=== PATIENT | female | born 1980 | race American Indian/Alaskan Native ===

== ENCOUNTER 2018-03-10 10:17 | Inpatient (IN) | payer MEDICAID ==
[2018-03-03 12:21] VITALS: BMI 27.8
[2018-03-10] MEDS ORDERED: Propofol 10 mg/ml Inj (20 ML) ONE (13:12)
[2018-03-10] MEDS ORDERED: ceFAZolin IV 1 gm in Dextrose 1 GM/50 ML BAG IVPB ONE (13:27)
[2018-03-10] MEDS ORDERED: Succinylcholine Chloride 20 mg/ml Syr (5 ml) IV ONE (13:39)
[2018-03-10] MEDS ORDERED: Rocuronium 10 mg/ml (5 ml) ONE (13:39)
[2018-03-10] MEDS ORDERED: Neostigmine Methylsulfate 3mg/3ml Syringe IV ONE (13:44)
[2018-03-10] MEDS ORDERED: Bupivacaine 0.25% 20 ML INJ IJ ONE (13:57)
[2018-03-10] MEDS ORDERED: Lactated Ringer's 1,000 ML IV SCH (14:30)
[2018-03-10] MEDS ORDERED: Dextrose 5%/0.45% NS 1,000 ML IV ONE (17:00)
[2018-03-10] MEDS: Dextrose 5%/0.45% NS 1,000 ML IV SCH (17:59)
[2018-03-10] MEDS ORDERED: Pneumococcal 23-Valent Vaccine IM ONE (18:14)
[2018-03-10] MEDS ORDERED: Influenza Vaccine 60 MCG/0.5 ML SYR (3 yr & up) IM ONE (18:17)
[2018-03-10] MEDS: Oxycodone/Acetaminophen 5/325 mg Tab PO PRN (18:39)
--- NOTE | 2018-03-10 23:50 | CP.PCM.CON ---
Past Patient History - Past Medical History & Family History Past Medical History?: Yes - Past Social History Smoking Status: Never Smoked - CARDIAC Hx Cardiac Disorders: No - PULMONARY Hx Respiratory Disorders: No - NEUROLOGICAL Hx Neurological Disorder: No - HEENT Hx HEENT Problems: No - RENAL Hx Chronic Kidney Disease: No - ENDOCRINE/METABOLIC Hx Endocrine Disorders: No - HEMATOLOGICAL/ONCOLOGICAL Hx Blood Disorders: No - INTEGUMENTARY Hx Dermatological Problems: No - MUSCULOSKELETAL/RHEUMATOLOGICAL Hx Musculoskeletal Disorders: No Hx Falls: No Other/Comment: HX: VENTRAL HERNIA - GASTROINTESTINAL Hx Gastrointestinal Disorders: No - GENITOURINARY/GYNECOLOGICAL Hx Genitourinary Disorders: Yes Hx Reproductive Disorders: Yes (FIBROIDS) - PSYCHIATRIC Hx Substance Use: No - SURGICAL HISTORY Hx Surgeries: Yes Hx Section: Yes Hx Hysterectomy: Yes (PARTIAL HYSTERECTOMY 08/2015) Hx Tubal Ligation: Yes Other/Comment: BREAST REDUCTION - ANESTHESIA Hx Anesthesia: Yes Hx Anesthesia Reactions: No Hx Malignant Hyperthermia: No Has any member of the family had a problem w/ anesthesia?: No Meds Allergies/Adverse Reactions: Allergies Allergy/AdvReac Type Severity Reaction Status Date / Time No Known Allergies Allergy Verified 03/03/18 12:21 - Medications Medications: Current Medications Docusate Sodium (Colace) 100 mg PO BID [facility] Last Admin: 03/10/18 18:40 Dose: 100 mg Dextrose/Sodium Chloride (Dextrose 5%/0.45% Ns 1000 Ml) 1,000 mls @ 80 mls/hr IV .[id number] [facility] Last Admin: 03/10/18 17:59 Dose: 80 mls/hr Lactated Ringer's (Lactated Ringer's) 1,000 mls @ 100 mls/hr IV .Q10H [facility] Cefazolin Sodium 1,000 mg/ (Sodium Chloride) 50 mls @ 100 mls/hr IVPB Q8H [facility]; Protocol Last Admin: 03/10/18 19:00 Dose: 100 mls/hr Ondansetron HCl (Zofran Inj) 4 mg IVP Q6 PRN PRN Reason: Nausea/Vomiting Oxycodone/Acetaminophen (Percocet 5/325 Mg Tab) 2 tab PO Q4H PRN PRN Reason: pain Stop: 03/13/18 14:10 Last Admin: 03/10/18 18:39 Dose: 2 tab Pantoprazole Sodium (Protonix Inj) 40 mg IVP DAILY [facility] Results - Vital Signs Recent Vital Signs: Last Vital Signs Temp 98 F 03/10/18 22:00 Pulse 80 03/10/18 22:00 Resp 18 03/10/18 22:00 BP 142/75 03/10/18 22:00 Pulse Ox 97 03/10/18 22:00
[2018-03-11] MEDS: Oxycodone/Acetaminophen 5/325 mg Tab PO PRN ×2 (02:29→11:18)
[2018-03-11] MEDS: Dextrose 5%/0.45% NS 1,000 ML IV SCH (03:00)
[2018-03-11 05:47] VITALS: O2SAT 97
[2018-03-11 06:38] LABS: BASO % 0.4 % (0.0-2.0); HEMOGLOBIN 12.8 g/dL (11.0-16.0); LYMPH # 1.9 K/uL (1.0-4.3); LYMPH % 18.4 % (20.0-40.0); MEAN CELL VOLUME 86.6 fL (81.0-99.0); MEAN CORPUSCULAR HEMOGLOBIN 28.6 pg (27.0-31.0); MEAN PLATELET VOLUME 10.1 fL (7.2-11.7); MONO # 0.6 K/uL (0.0-0.8); MONO % 6.3 % (0.0-10.0); NEUT # 7.7 K/uL (1.8-7.0); NEUT % 74.9 % (50.0-75.0); RBC 4.46 Mil/uL (3.80-5.20); RED CELL DISTRIBUTION WIDTH 13.8 % (11.5-14.5); WHITE BLOOD COUNT 10.3 K/uL (4.8-10.8)
[2018-03-11 07:05] LABS: BLOOD UREA NITROGEN 6 mg/dL (7-17); CALCIUM 8.7 mg/dl (8.6-10.4); GFR NON-AFRICAN AMERICAN > 60
--- NOTE | 2018-03-11 07:07 | OP ---
PROCEDURE DATE: 03/10/2018 PREOPERATIVE DIAGNOSIS: Partially incarcerated ventral hernia. POSTOPERATIVE DIAGNOSIS: Partially incarcerated ventral hernia. PROCEDURE PERFORMED: Repair of incarcerated ventral hernia with lysis of adhesions. SURGEON: Shlomo Boudreaux MD ANESTHESIA: General. BLOOD LOSS: 20 mL. POSTOPERATIVE CONDITION: Stable. INDICATIONS FOR SURGERY: This is a 38-year-old female with a history of a painful midline ventral hernia, who now presents for elective repair. GROSS FINDINGS: There was a large hernia defect containing both small bowel and omentum. It was associated with adhesions, and extensive lysis of adhesions was performed prior to primary repair. DESCRIPTION OF PROCEDURE: The patient was taken to the operating room. General anesthesia was administered. The abdomen was prepped and draped. A transverse incision was made two fingerbreadths above the umbilicus. The hernia sac was identified, dissected down to the base of the fascia and removed. There were underlying adhesions, which were taken down sharply with Metzenbaum scissors. Serosal tears of both the transverse colon and the small bowel were repaired with a TA-30 stapler. After there was adequate mobilization and freeing of the fascia, the primary repair was accomplished using interrupted 0 Novafil suture. The wound was irrigated with saline. The subcutaneous space was closed with Monocryl, and subcuticular Monocryl suture was used in the skin. The patient tolerated the procedure well, was returned to the recovery room in stable condition. Shlomo Boudreaux MD
--- NOTE | 2018-03-11 07:58 | CON ---
DATE: 03/11/2018 REASON FOR CONSULTATION: Postop care. HISTORY OF PRESENT ILLNESS: This is a 38-year-old -[place] female, well known to me with status post abdominal surgery and postoperatively she was admitted. The patient denies any shortness of breath or chest pain. No nausea or vomiting. No shortness of breath. She has mild postop pain. No cough. No sore throat. ALLERGIES: UNKNOWN ALLERGIES. CURRENT MEDICATIONS: None. PAST MEDICAL HISTORY: Nothing significant. SOCIAL HISTORY: Socially . PHYSICAL EXAMINATION: VITAL SIGNS: BP 142/75, pulse 80, respiratory rate 13, and temperature 98. SKIN: No rashes. No bruises. No purpura. No petechiae. No ecchymosis. HEENT: Atraumatic, normocephalic. Negative pallor. Negative jaundice. Extraocular movements are intact. NECK: Supple. Flat neck. No JVD. No lymph node. No thyromegaly. No carotid bruits. CHEST WALL: Bilateral symmetrical expansion. No masses. LUNGS: Clear. No rales. No rhonchi. CARDIOVASCULAR SYSTEM: S1 and S2, regular. No heave. No thrill. ABDOMEN: Postop bowel sounds are present. PELVIC AND RECTAL: Deferred due the patient's postop status. EXTREMITIES: Normal. CENTRAL NERVOUS SYSTEM: Normal. ASSESSMENT: Status post hernia repair. PLAN: Continue postop care. Monitor the patient. Geo Montero MD
[2018-03-11 08:09] VITALS: BP 122/75; PULSE 56; RESP 20; TEMP 98.3
[2018-03-11] MEDS ORDERED: ceFAZolin IV 1 gm in Dextrose 1 GM/50 ML BAG IVPB SCH (11:00)
--- NOTE | 2018-03-12 06:18 | CP.PCM.PN ---
Subjective - Subjective Subjective: dictated Objective - Vital Signs/Intake and Output Vital Signs (last 24 hours): Temp Pulse Resp BP Pulse Ox 98.3 F 56 L 20 122/75 97 03/11/18 07:00 03/11/18 07:00 03/11/18 07:00 03/11/18 07:00 03/11/18 07:00 - Labs Labs: 03/11/18 06:31 03/11/18 06:27
--- NOTE | 2018-03-12 12:07 | PN ---
DATE: 03/12/2018 SUBJECTIVE: Osman Srinivasan is for discharge. No fever. No chills. PHYSICAL EXAMINATION: VITAL SIGNS: Blood pressure 110/67, pulse 61, respiratory rate 18, temperature 98.7. LUNGS: Clear. ABDOMEN: Postop abdominal surgery. ASSESSMENT AND PLAN: Discharge the patient. Geo Montero MD
== END 2018-03-11 13:27 | disposition home or self-care (01) | DRG 227 ==
LOC: C.SDS 10:17 → C.9S 14:11 → C.6T 17:46
PROVIDERS: ADMIT Surgery; ATTEND Surgery
PROC: 0DNU0ZZ Release Omentum, Open Approach (ICD-10-PCS; 2018-03-10)
PROC: 0WQF0ZZ Repair Abdominal Wall, Open Approach (ICD-10-PCS; principal; 2018-03-10 12:00)
DX: K43.6 Other and unspecified ventral hernia with obstruction, without gangrene (principal); K66.0 Peritoneal adhesions (postprocedural) (postinfection); S36.439A Laceration of unspecified part of small intestine, initial encounter; S36.539A Laceration of unspecified part of colon, initial encounter; Y65.8 Other specified misadventures during surgical and medical care